=== PATIENT | male | born 1990 | race African-American/Black ===

== ENCOUNTER 2020-10-29 11:37 | Emergency (ER) | payer OTHER, SELFPAY ==
--- NOTE | ~2020-10-29 | XR_ITS ---
XR ankle LT min 3V 10/29/2020 12:14 Indication: Left ankle pain Procedure: 4 views left ankle Comparison: No prior studies for comparison. Findings: There is no acute fracture or traumatic malalignment. There is anatomic alignment. Moderate lateral soft tissue swelling. Ankle mortise intact. Impression: 1: No acute fracture. Reviewed, dictated and finalized at location A. Impression: 1: No acute fracture.
[2020-10-29 11:54] VITALS: BP 140/86; PULSE 76; RESP 20; TEMP 37.1; O2SAT 99
--- NOTE | 2020-10-29 12:24 | ED.LOWEXIN ---
HPI - Extremity Injury (Lower) General Chief Complaint: Extremity Injury, Lower Stated Complaint: Possible injury to the left Ankle Time Seen by Provider: 10/29/20 12:25 Source: patient and family History of Present Illness HPI Narrative: Patient presents with pain to the lateral side of his left ankle. Patient states he rolled it playing basketball last night. Slight swelling to the area complains of pain with ambulation. No bruising no deformity no open areas noted. MD complaint: ankle injury Related Data Home Medications Medication Instructions Recorded Confirmed No Home Medications 10/29/20 10/29/20 Allergies Allergy/AdvReac Type Severity Reaction Status Date / Time No Known Allergies Allergy Verified 10/29/20 12:16 Review of Systems Review of Systems: CONSTITUTIONAL: Denies fever, chills, or sweats. EYES: Denies visual changes, redness, or discharge. ENT: Denies rhinorrhea, congestion, sore throat, or otalgia. CARDIOVASCULAR: Denies chest pain, palpitations, or edema. RESPIRATORY: Denies cough or dyspnea. GASTROINTESTINAL: Denies abdominal pain, nausea, vomiting, or diarrhea. GENITOURINARY: Denies dysuria or hematuria. SKIN: Denies rash or itching. MUSCULOSKELETAL: Denies back pain, joint pain, or myalgia. NEUROLOGIC: Denies headache, numbness, or weakness. PSYCHIATRIC: Denies anxiety or depression. PMFSH Social History Social History Gender identity (if verbalized by the patient): Male Comments At time of signature, agree with nursing past medical, surgical, social and family history. There is no relevant family history pertinent to the presenting complaint Exam Narrative: GENERAL: Well-appearing, well-nourished, and in no acute distress. HEAD: Normocephalic, atraumatic. EYES: PERRLA and EOMI. ENT: Nares clear, no rhinorrhea or epistaxis. Mucous membranes moist. NECK: Supple. CHEST: Clear to auscultation. No respiratory distress. HEART: Regular rate and rhythm. No murmur heard. Normal peripheral pulses. ABDOMEN: Soft, nontender, nondistended, normal active bowel sounds. EXTREMITIES: Normal range of motion. No edema.SKIN INTACT. NORMAL DP PULSE, NORMAL CAP REFILL. NORMAL SENSATION. PAIN TO LATERAL SIDE OF LEFT ANKLE NO CALF OR ANKLE SWELLING, DISCOLORATION. NORMAL FOOT SENSATION AND CAP REFILL. NORMAL DP PULSE. . SKIN: Warm, dry, no rash. NEURO: No focal deficits. Alert and oriented x3. Farwell Coma Scale Eye Opening: Spontaneous 4 Maria M Coma Scale Motor: Obeys Commands 6 Farwell Coma Scale Verbal: Oriented 5 Maria M Coma Scale Total 15 Course Vital Signs Vital signs: Vital Signs Temperature 37.1 C 10/29/20 11:54 Pulse Rate 76 10/29/20 11:54 Respiratory Rate 20 10/29/20 11:54 Blood Pressure 140/86 10/29/20 11:54 Pulse Oximetry 99 10/29/20 11:54 Temperature 37.1 C 10/29/20 11:54 Pulse Rate 76 10/29/20 11:54 Respiratory Rate 20 10/29/20 11:54 Blood Pressure 140/86 10/29/20 11:54 Pulse Oximetry 99 10/29/20 11:54 Addressed elevated BP today. Today's blood pressure higher than recommended range. Discussed importance of follow -up with PCP and possible lobsterman effects/cardiovascular events related to HTN. Currently patient denies headache, dizziness, vision changes, CP or shortness of breath. DISCUSSED WITH PATIENT, X-RAY FINDINGS AND THAT X-RAYS WERE NEGATIVE FOR FRACTURE OR DISLOCATIONS. X-RAYS CANNOT RULE OUT TENDON, LIGAMENT, OR SOFT TISSUE STRUCTURE INJURIES AND IF SYMPTOMS PERSIST OR WORSEN, FURTHER EVALUATION MAY BE WARRANTED FOR POTENTIAL IMAGING. ADVISED REST, ICE, COMPRESSION, AND ELEVATION. IF PRESCRIBED ANY MEDICATIONS, TAKE DIRECTED. IF PRESCRIBED MUSCLE RELAXERS, DO NOT DRINK ALCOHOL, DRIVE, OR OPERATE ANY HEAVY MACHINERY WHILE TAKING. INSTRUCTED ON WHEN TO F/U WITH PCP AND CRITICAL RED FLAGS S/S DISCUSSED TO WHEN TO RETURN TO THE [facility] OR GO TO THE EMERGENCY DEPARTMENT. PATIENT/FAMILY UNDERSTAND IMPORTANCE OF CLOSE OBSERVATION A
== END 2020-10-29 12:56 | disposition home or self-care (01) ==
PROVIDERS: Emergency Provider Nurse Practitioner Family
DX: S93.402A Sprain of unspecified ligament of left ankle, initial encounter (principal); S96.912A Strain of unspecified muscle and tendon at ankle and foot level, left foot, initial encounter; X50.9XXA Other and unspecified overexertion or strenuous movements or postures, initial encounter; Y93.67 Activity, basketball
CPT/HCPCS: 73610; 99213; G0463

== ENCOUNTER 2024-09-26 17:55 | Emergency (ER) | payer OTHER, SELFPAY ==
--- OUTSIDE RECORDS SUMMARY | 2024-09-26 17:57 | XMS_ITS | Clinical Summary ---
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 6.7 Gram 4 0 Active Active Problems No known active problems Family History Medical History Relation Name Comments No Known Problems Brother No Known Problems Father Unknown Maternal Grandfather No Known Problems Maternal Grandmother Multiple Sclerosis Mother Unknown Paternal Grandfather Unknown Paternal Grandmother No Known Problems Sister Relation Name Status Comments Brother Alive Father Alive Maternal Grandfather Maternal Grandmother Alive Mother Alive Paternal Grandfather Paternal Grandmother Sister Alive Social History Tobacco Use Types Packs/Day Years Used Date Smoking Tobacco: Never Smokeless Tobacco: Never Alcohol Use Standard Drinks/Week Comments Yes 0 (1 standard drink = 0.6 oz pur e alcohol) occassionally Sex and Gender Information Value Date Recorded Sex Assigned at Not on file Legal Sex Male 1:50 PM CDT Gender Identity Not on file Sexual Orientation Not on file Last Filed Vital Signs Vital Sign Reading Time Taken Comments Blood Pressure 114/84 09/03/2022 9:30 AM CDT Pulse 89 01/03/2018 3:34 PM CDT Temperature 36.3 C (97.4 F) 01/03/2018 3:34 PM CDT Respiratory Rate 16 01/03/2018 3:34 PM CDT Oxygen Saturation 98% 01/03/2018 3:34 PM CDT Inhaled Oxygen Concentration - - Weight 93.4 kg (206 lb) 09/03/2022 9:30 AM CDT Height 182.9 cm (6') 09/03/2022 9:30 AM CDT Body Mass Index 27.94 09/03/2022 9:30 AM CDT Plan of Treatment Health Maintenance Due Date Last Done Comments DTAP/TDAP/TD VACCINES (1 - Tdap) 2008 HEPATITIS B VACCINES (1 of 3 - 19+ 3-dose series) 2008 INFLUENZA VACCINE (#1) 2024 HPV VACCINES Aged Out No longer eligi ble based on patient's age to complete this topic Insurance * Guarantor: [employer] Account Type Relation to Patient Date of Phone Billing Address Corporate Employer ATTN: ZAIDA AMOR [address] [employer] [id number] [employer]
[2024-09-26 18:04] VITALS: BP 148/98; PULSE 78; RESP 18; TEMP 37.1; O2SAT 100
--- NOTE | 2024-09-26 18:16 | ED.SKABFB ---
HPI - Skin/Abscess/Foreign Bdy General Chief complaint: Skin/Abscess/Foreign Body Stated complaint: Stitches Removed Time Seen by Provider: 09/26/24 18:00 Source: patient and RN notes reviewed Mode of arrival: ambulatory Limitations: no limitations History of Present Illness HPI narrative: 33-year-old male presents [facility] complaining of suture removal to the left side of his face. Patient says his stitches have been in place for about 10 days, patient said that he had 2 stitches placed back in [place] ER stating he took an accidental elbow to the face. Patient's tetanus is up-to-date. Patient denies any signs of infection. Related Data Home Medications ?Medication ?Instructions ?Recorded ?Confirmed ?Last Taken ?Type No Home Medications 09/26/24 09/26/24 Unknown History Allergies Allergy/AdvReac Type Severity Reaction Status Date / Time No Known Allergies Allergy Verified 09/26/24 18:03 Review of Systems Review of Systems: CONSTITUTIONAL: Denies fever, chills, or sweats. EYES: Denies visual changes, redness, or discharge. ENT: Denies rhinorrhea, congestion, sore throat, or otalgia. CARDIOVASCULAR: Denies chest pain, palpitations, or edema. RESPIRATORY: Denies cough or dyspnea. GASTROINTESTINAL: Denies abdominal pain, nausea, vomiting, or diarrhea. GENITOURINARY: Denies dysuria or hematuria. SKIN: Denies rash or itching. Positive for stitches. MUSCULOSKELETAL: Denies back pain, joint pain, or myalgia. NEUROLOGIC: Denies headache, numbness, or weakness. PSYCHIATRIC: Denies anxiety or depression. All other systems reviewed are negative, except as documented in HPI. PMFSH Social History Social History Smoking status: Never smoker Alcohol intake: current Alcohol use details: occasionally Substance use: never Gender identity (if verbalized by the patient): Male Comments At the time of my signature, I reviewed and agree with the nursing past medical, surgical, social, and family history. There is no relevant family history pertinent to the patient complaint. Exam Narrative: GENERAL: This is a well-nourished, well-developed adult, in no apparent distress. They are non ill-appearing, nontoxic appearing. HEAD: normocephalic, atraumatic. EYES: Sclera clear/white. Conjunctiva normal. Vision is grossly intact. Extraocular movements intact EARS: External ears normal, Hearing grossly intact. NOSE: External nose normal THROAT: Mucous membranes moist, NECK: Neck supple, CARDIOVASCULAR: Regular rate and rhythm RESPIRATORY: Respiratory rate normal, respiratory effort nonlabored, no respiratory distress SKIN: [address] near the left inferior mandible near the angle of the jaw. No redness, swelling, exudate, no area of fluctuance, no induration, no pain. NEURO: awake, alert, and oriented to person, place and time. There were no obvious focal neurologic abnormalities. Course Course Emergency Course: Portions of this record may have been created with voice recognition software Level of Care: [facility] Visit Vital Signs Vital signs: Vital Signs Temperature 98.7 F 09/26/24 18:04 Pulse Rate 78 09/26/24 18:04 Respiratory Rate 18 09/26/24 18:04 Blood Pressure 148/98 H 09/26/24 18:04 Pulse Oximetry 100 09/26/24 18:04 Oxygen Delivery Room Air 09/26/24 18:04 Temperature 98.7 F 09/26/24 18:04 Pulse Rate 78 09/26/24 18:04 Respiratory Rate 18 09/26/24 18:04 Blood Pressure 148/98 H 09/26/24 18:04 Pulse Oximetry 100 09/26/24 18:04 Oxygen Delivery Room Air 09/26/24 18:04 Reviewed Procedures Other Procedure Procedure 1: Other Procedure: Successful suture removal 2 stitches to the patient's left jaw all on the lower mandible. No evidence of infection. MDM - Skin/Abscess/Foreign Bdy MDM Narrative Medical decision making narrative: Two sutures removed successfully from patient's left lower mandible. There is no signs of infection. Patient's tetanus up-to-date. Advised patient to continue washing for infection and washing the skin daily with mild soap and water. Discussed physical exam findings. Advised supportive measures and signs/symptoms to go to the ER. Pt is appropriate for outpt treatment and f/u. Differential Diagnosis Differential diagnosis: Likely other (Suture removal, laceration, cellulitis, abscess) Critical Care Time Critical Care Time Critical Care Time: No Discharge Plan Discharge Clinical Impression: Encounter for removal of sutures Patient Disposition: Home Condition: Stable Instructions: Acute Wounds (ED) Additional Instructions: Your stitches were removed today. Continue the wash the wound with daily mild soap and water. Follow-up with PCP in 3-5 days. Please go to the ER if you develop increased redness, swelling, pain, or green/yellow discharge, fevers, or any other concerns. Patient Language: Yoruba Prescriptions: No Action No Home Medications Follow-up/Referrals: PHYSICIAN,STEWARD/[facility] [Primary Care Provider] - Time of Disposition: 18:03
== END 2024-09-26 18:13 | disposition home or self-care (01) ==
DX: S01.81XD Laceration without foreign body of other part of head, subsequent encounter (principal); W50.0XXD Accidental hit or strike by another person, subsequent encounter; J45.909 Unspecified asthma, uncomplicated
CPT/HCPCS: 99211; G0463